=== PATIENT | male | born 1985 | race Caucasian/White ===

== ENCOUNTER 2021-03-22 10:07 | Emergency (ER) | payer OTHER ==
[2021-03-22 11:02] LABS: RED BLOOD COUNT 4.87 M/UL (4.20-5.50); WHITE BLOOD COUNT 4.9 K/UL (4.5-11.0)
[2021-03-22 11:36] LABS: BUN/CREATININE RATIO 21 (0-10)
[2021-03-22] MEDS ORDERED: IBUPROFEN600 MG PO (14:35)
== END 2021-03-22 14:57 | disposition home or self-care (01) ==
LOC: ER1 10:07
PROVIDERS: Internal Medicine
DX: R07.9 Chest pain, unspecified (principal); E11.9 Type 2 diabetes mellitus without complications; I10 Essential (primary) hypertension
CPT/HCPCS: 36600; 71046; 80053; 80307; 82550; 82553; 82803; 82962; 84484; 85025; 93005; 96374; 96375; 99285; J2405; J7040; J7120